=== PATIENT | female | born 1945 | race Caucasian/White ===

== ENCOUNTER 2017-08-05 12:15 | Observation (INO) | payer BC ==
[~2017-08-05] VITALS: Ht 160 cm; Wt 104.4 kg
[2017-08-05 12:55] LABS: HEMATOCRIT 41.9 % (36.0-46.0); MCH 29.7 PG (29.0-34.0); MCHC 32.5 G/DL (30.0-36.0); MCV 91.5 FL (83-99); MEAN PLAT.VOLUME 11.9 uM^3 (9.5-12.4); PLATELET COUNT 207 K/uL (156-360); RBC DIS.WIDTH-CV 13.1 % (11.8-14.6); RBC DIS.WIDTH-SD 43.8 % (39-53); RED BLOOD COUNT 4.58 M/uL (3.80-5.20); WHITE BLOOD COUNT 6.3 K/uL (4.1-10.2)
[2017-08-05 13:03] LABS: CHLORIDE 105 mEq/L (99-109); POTASSIUM 4.2 mEq/L (3.7-5.4); SODIUM 142 mEq/L (136-147)
[2017-08-05 13:05] LABS: GLUCOSE 119 mg/dL (70-99)
[2017-08-05 13:06] LABS: ANION GAP 13 MEQ/L (2-14)
[2017-08-05 13:09] LABS: GFR ESTIMATE (CALCULATED) 36 mL/min/
[2017-08-05 13:10] LABS: UREA NITROGEN (BUN) 23 mg/dL (9-23)
[2017-08-05 13:16] LABS: TROP-I INTERPRETATION NEGATIVE; TROPONIN-I < 0.01 ng/mL (0.0-0.30)
[2017-08-05] MEDS ORDERED: TRIAMTERENE-HC1 EACH PO (15:35)
[2017-08-05] MEDS ORDERED: GLIMEPIRIDE2 MG PO (15:35)
[2017-08-05] MEDS ORDERED: METFORMIN HCL1000 MG PO (15:36)
[2017-08-05] MEDS ORDERED: MONTELUKAST SOD10 MG PO (15:36)
[2017-08-05] MEDS ORDERED: OMEPRAZOLE20 M2 PO (15:37)
[2017-08-05] MEDS ORDERED: SIMVASTATIN40 MG PO (15:37)
[2017-08-05] MEDS ORDERED: ASPIR 8181 M1 PO (15:37)
[2017-08-05] MEDS ORDERED: ASMANEX TW200 MICRO1 IH (15:38)
[2017-08-05] MEDS ORDERED: PROAIR HFA8.5 GM IH (15:38)
[2017-08-05 16:24] VITALS: BP 189/90
[2017-08-05 19:19] VITALS: BP 188/80
[2017-08-05 20:23] LABS: TROP-I INTERPRETATION NEGATIVE; TROPONIN-I < 0.01 ng/mL (0.0-0.30)
[2017-08-05 20:45] VITALS: BP 130/58
[2017-08-05 21:53] LABS: POINT-OF-CARE METER ID UU14162513
[2017-08-05 23:26] VITALS: BP 119/57
[2017-08-06 02:19] LABS: TROP-I INTERPRETATION NEGATIVE; TROPONIN-I < 0.01 ng/mL (0.0-0.30)
[2017-08-06 02:58] VITALS: BP 129/61
[2017-08-06 05:26] LABS: HEMATOCRIT 38.6 % (36.0-46.0); MCH 30.6 PG (29.0-34.0); MCHC 33.2 G/DL (30.0-36.0); MCV 92.3 FL (83-99); PLATELET COUNT 197 K/uL (156-360); RBC DIS.WIDTH-CV 13.2 % (11.8-14.6); RBC DIS.WIDTH-SD 44.7 % (39-53); RED BLOOD COUNT 4.18 M/uL (3.80-5.20); WHITE BLOOD COUNT 6.5 K/uL (4.1-10.2)
[2017-08-06 05:49] LABS: CHLORIDE 103 MEQ/L (99-109); GFR ESTIMATE (CALCULATED) 36 mL/min/; GLUCOSE 116 mg/dL (70-99); POTASSIUM 4.5 MEQ/L (3.7-5.4); SAMPLE HEMOLYSIS CHECK 0; SAMPLE ICTERIC CHECK 0; SAMPLE LIPEMIA CHECK 0; SODIUM 139 MEQ/L (136-147); UREA NITROGEN (BUN) 23 mg/dL (9-23)
[2017-08-06 05:50] LABS: ANION GAP 9 MEQ/L (2-14)
[2017-08-06 08:21] LABS: POINT-OF-CARE METER ID UU14162513
[2017-08-06 08:29] VITALS: BP 153/68
[2017-08-06 11:52] VITALS: BP 175/77
[2017-08-06] MEDS ORDERED: NITROSTAT0.4 MG SL (12:18)
[2017-08-06 13:30] VITALS: BP 139/66
== END 2017-08-06 14:35 | disposition home or self-care (01) ==
LOC: EME 12:15 → 5WEST 14:55 → ENRESERV 14:56 → EDOF 15:08 → 5WEST 16:07 → ENPENDDIS 08-06 → 5WEST 08-06 14:35
PROVIDERS: Internal Medicine; Nurse Practitioner Adult Health
DX: R07.9 Chest pain, unspecified (principal); E11.9 Type 2 diabetes mellitus without complications; E78.5 Hyperlipidemia, unspecified; I10 Essential (primary) hypertension; R94.31 Abnormal electrocardiogram [ECG] [EKG]; Z82.49 Family history of ischemic heart disease and other diseases of the circulatory system; Z79.84 Long term (current) use of oral hypoglycemic drugs; Z79.82 Long term (current) use of aspirin; M79.89 Other specified soft tissue disorders; R91.1 Solitary pulmonary nodule; J45.909 Unspecified asthma, uncomplicated; F41.9 Anxiety disorder, unspecified; E66.9 Obesity, unspecified; Z68.41 Body mass index [BMI] 40.0-44.9, adult; Z87.891 Personal history of nicotine dependence
CPT/HCPCS: 71020; 80048; 82948; 84484; 85027; 85379; 93005; 94640; 94640 76; 99202; 99281; 99285; G0378; J0360; J1815